=== PATIENT | male | born 1960 | race Caucasian/White ===

== ENCOUNTER 2019-11-13 18:05 | Emergency (ER) | payer OTHER ==
[~2019-11-13] VITALS: Ht 175.3 cm; Wt 68.2 kg
[2019-11-13 18:23] VITALS: BP 145/92
--- NOTE | 2019-11-13 18:36 | NUR ---
PT DENIES PAIN, HEADACHE OR CHEST PAIN. PT STATES "THERES NOTHIGN WRONG WITH ME I DONT HURT"
--- NOTE | 2019-11-13 18:39 | NUR ---
PT WILL BE GETTING A LEGAL BLOOD DRAW BY [employer]. P WITH PT.
--- NOTE | 2019-11-13 19:12 | NUR ---
[facility] OFFICER NENA #[id number] [place]
== END 2019-11-13 19:15 ==
LOC: ER 18:07
DX: Z02.89 Encounter for other administrative examinations (principal); I10 Essential (primary) hypertension; R00.0 Tachycardia, unspecified; Z88.0 Allergy status to penicillin; V49.9XXA Car occupant (driver) (passenger) injured in unspecified traffic accident, initial encounter; Y93.89 Activity, other specified; Y92.89 Other specified places as the place of occurrence of the external cause; Y99.8 Other external cause status
CPT/HCPCS: 99283